=== PATIENT | male | born 1965 | race Caucasian/White ===

== ENCOUNTER 2020-01-15 12:14 | Outpatient (CLI) | payer BC ==
--- NOTE | 2020-01-15 16:49 | RAD ---
RIGHT KNEE FOUR VIEWS: 01/15/20 No fracture or joint effusion was seen. The joint space is normal in width. There are no significant arthritic changes. A little periosteal prominence in the proximal tibial shaft posteriorly is probabl y longstanding. I doubt its current significance. IMPRESSION: No acute finding. POS: HOME
== END 2020-01-15 12:15 | disposition home or self-care (01) ==
LOC: BURRAD 12:14
PROVIDERS: ATTEND Nurse Practitioner Family
DX: S80.911A Unspecified superficial injury of right knee, initial encounter (principal)